=== PATIENT | female | born 1985 | race Caucasian/White ===

== ENCOUNTER 2017-02-14 22:49 | Emergency (ER) | payer SELFPAY ==
[~2017-02-14] VITALS: Ht 162.6 cm; Wt 59.0 kg
[2017-02-14 23:00] VITALS: BP_SYST 132
[2017-02-15 00:10] VITALS: BP_SYST 120
== END 2017-02-15 00:10 | disposition home or self-care (01) ==
LOC: SED 22:49
DX: J02.9 Acute pharyngitis, unspecified (principal); R03.0 Elevated blood-pressure reading, without diagnosis of hypertension
CPT/HCPCS: 99283